=== PATIENT | male | born 1945 | race Caucasian/White ===

== ENCOUNTER 2020-12-14 18:43 | Emergency (ER) | payer MEDICARE, OTHER ==
[~2020-12-14] VITALS: Ht 167.6 cm; Wt 55.0 kg
[2020-12-14 18:46] VITALS: BP 138/58
[2020-12-14] MEDS ORDERED: LIDOCAINE HCL/EPINEPHRINE 1%-EPI 1:100,000 20 ML VIAL INFIL ONE (19:15)
[2020-12-14] MEDS ORDERED: KETOROLAC 15MG/ML VIAL IV ONE (19:15)
[2020-12-14] MEDS ORDERED: TETANUS, DIPHTHERIA, PERTUSSIS VAC/PF 0.5ML (>10YR OLD) IM ONE (19:15)
[2020-12-14] MEDS ORDERED: BACITRACIN ZINC OINT UDPKT TOP ONE ×2 (19:15→21:00)
[2020-12-14 19:40] LABS: EOSINOPHILS % 3.7 % (0.0-5.0); HEMATOCRIT. 34.9 % (42.0-52.0); HEMOGLOBIN. 12.2 g/dL (14.0-18.0); LYMPHOCYTES % 33.1 % (20.0-50.0); MEAN CORPUSCULAR VOLUME 91.8 fL (80.0-94.0); MEAN PLATELET VOLUME 7.6 fl (7.4-10.4); MONOCYTES % 8.8 % (2.0-8.0); NEUTROPHILS % 53.4 % (40.0-76.0); PLATELET 219 x1000/uL (130-400)
[2020-12-14] MEDS ORDERED: KETOROLAC 60MG/2ML VIAL IM ONE (19:45)
[2020-12-14 19:46] LABS: CHLORIDE 95 mEq/L (98-107)
[2020-12-14 19:49] LABS: ETHANOL BLOOD 250 mg/dL
[2020-12-14] MEDS ORDERED: IBUP-2028 MT (20:01)
== END 2020-12-14 21:43 | disposition home or self-care (01) ==
LOC: ER 18:43
DX: S51.011A Laceration without foreign body of right elbow, initial encounter (principal); F10.129 Alcohol abuse with intoxication, unspecified; E11.9 Type 2 diabetes mellitus without complications; I10 Essential (primary) hypertension; E78.00 Pure hypercholesterolemia, unspecified; Y90.8 Blood alcohol level of 240 mg/100 ml or more; W01.0XXA Fall on same level from slipping, tripping and stumbling without subsequent striking against object, initial encounter; Y93.89 Activity, other specified; Y92.488 Other paved roadways as the place of occurrence of the external cause
CPT/HCPCS: 12007; 36415; 70450; 73080; 80053; 80320; 85025; 90471; 90715; 96372; 99285; A4217; J1885; J3490; Z7610; G0480

== ENCOUNTER 2023-04-05 11:45 | Emergency (ER) | payer MEDICARE, MEDICAID, OTHER ==
[~2023-04-05] VITALS: Ht 162.6 cm; Wt 50.0 kg
[~2023-04-05 11:45] MED LIST: IBUP-2028 MT; LANTUSUD SUBCUT; LEVO750T68 MT
[2023-04-05 11:54] VITALS: O2SAT 99
[2023-04-05] MEDS: ACETAMINOPHEN 325MG TABLET PO STA (12:24)
[2023-04-05 12:59] LABS: BASOPHILS % 0.7 % (0.0-2.0); EOSINOPHILS % 3.6 % (0.0-5.0); HEMATOCRIT. 34.5 % (42.0-52.0); HEMOGLOBIN. 11.1 g/dL (14.0-18.0); LYMPHOCYTES % 26.8 % (20.0-50.0); MEAN CORPUSCULAR HEMOGLOBIN 28.3 pg (28.0-32.0); MEAN CORPUSCULAR HGB CONC 32.2 g/dL (31.0-37.0); MEAN CORPUSCULAR VOLUME 88.1 fL (80.0-94.0); MEAN PLATELET VOLUME 7.5 fl (7.4-10.4); MONOCYTES % 9.5 % (2.0-8.0); NEUTROPHILS % 59.4 % (40.0-76.0); PLATELET 316 x1000/uL (130-400); RED BLOOD CELL COUNT 3.92 mill/uL (4.7-6.1); RED CELL DISTRIBUTION WIDTH 14.6 % (11.6-14.6); WHITE BLOOD COUNT 6.3 x1000/uL (4.5-11.0)
[2023-04-05 13:13] LABS: ALANINE AMINOTRANSFERASE 10 IU/L (10-49); ALBUMIN 4.2 g/dL (3.2-4.8); ASPARTATE AMINOTRANSFERASE 14 IU/L (<34); BILIRUBIN TOTAL 0.3 mg/dL (0.1-1.0); CALCIUM 9.1 mg/dL (8.7-10.4); CARBON DIOXIDE 27 mEq/L (21-32); CHLORIDE 102 mEq/L (98-107); CREATININE 0.9 mg/dL (0.6-1.3); GLUCOSE 362 mg/dL (70-105); POTASSIUM 4.1 mEq/L (3.5-5.1); PROTEIN TOTAL 8.7 g/dL (6.0-8.3); SODIUM 133 mEq/L (136-145); UREA NITROGEN BLOOD 29 mg/dL (9-23)
[2023-04-05] MEDS: AMPICILLIN SOD/SULBACTAM NA 3 G in SODIUM CHLORIDE 0.9% 100 ML IV SCH (13:38)
[2023-04-05] MEDS ORDERED: IOHEXOL-300 100 ML BOTTLE ONE (15:01)
[2023-04-05] MEDS ORDERED: CIPHCO LEFT EAR (16:01)
[2023-04-05] MEDS ORDERED: CIPR500T5 MT (16:01)
[2023-04-05 16:58] VITALS: BP 134/78; PULSE 89; RESP 16; TEMP 98.7
== END 2023-04-05 16:59 | disposition home or self-care (01) ==
LOC: ER 11:45
DX: H60.8X2 Other otitis externa, left ear (principal); E11.9 Type 2 diabetes mellitus without complications; E78.00 Pure hypercholesterolemia, unspecified; I10 Essential (primary) hypertension; F15.90 Other stimulant use, unspecified, uncomplicated; Z98.890 Other specified postprocedural states
CPT/HCPCS: 99285; 96365; 70487; 80053; 85025; 36415; Q9967; J0295; J7050

== ENCOUNTER 2024-11-12 17:07 | Inpatient (IN) | payer MEDICARE, MEDICAID ==
[~2024-11-12] VITALS: Ht 165.1 cm; Wt 48.5 kg
[~2024-11-12 17:07] MED LIST changes: +CIPHCO LEFT EAR; +CIPR-494 MT
[2024-11-12 17:43] LABS: BASOPHILS % 0.9 % (0.0-2.0); EOSINOPHILS % 4.2 % (0.0-5.0); HEMATOCRIT. 39.4 % (42.0-52.0); HEMOGLOBIN. 13.1 g/dL (14.0-18.0); LYMPHOCYTES % 16.0 % (20.0-50.0); MEAN PLATELET VOLUME 7.2 fl (7.4-10.4); MONOCYTES % 6.8 % (2.0-8.0); NEUTROPHILS % 72.1 % (40.0-76.0); PLATELET 330 x1000/uL (130-400); RED BLOOD CELL COUNT 4.29 mill/uL (4.7-6.1); RED CELL DISTRIBUTION WIDTH 14.1 % (11.6-14.6)
[2024-11-12] MEDS: SODIUM CHLORIDE 0.9% 500 ML IV ONE (17:53)
[2024-11-12 17:55] LABS: INR 1.0
[2024-11-12 17:57] LABS: CREATININE 1.2 mg/dL (0.6-1.3)
[2024-11-12 17:58] LABS: ETHANOL BLOOD < 10 mg/dL (<10); TROPONIN I HIGH SENSITIVITY 7 ng/L (3.0-53); UREA NITROGEN BLOOD 17 mg/dL (9-23)
[2024-11-12 17:59] LABS: ASPARTATE AMINOTRANSFERASE 29 IU/L (<34); BILIRUBIN DIRECT 0.1 mg/dL (<=3.0)
[2024-11-12 18:00] LABS: BILIRUBIN TOTAL 0.4 mg/dL (0.1-1.0); PROTEIN TOTAL 9.2 g/dL (6.0-8.3)
[2024-11-12] MEDS: SODIUM CHLORIDE 0.9% 1,000 ML IV ONE (18:11)
[2024-11-12] MEDS: PIPERACILLIN/TAZO 3.375G/50ML 50 ML IV ONE (18:37)
[2024-11-12] MEDS: VANCOMYCIN 1G PREMIX 200 ML IV ONE (20:05)
[2024-11-12 20:52] LABS: CLARITY URINE CLEAR (CLEAR); COLOR URINE YELLOW (YELLOW); GLUCOSE URINE 3+ (NEGATIVE); KETONES URINE NEGATIVE (NEGATIVE); LEUKOCYTE ESTERASE URINE NEGATIVE (NEGATIVE); NITRITE URINE NEGATIVE (NEGATIVE); OCCULT BLOOD URINE NEGATIVE (NEGATIVE); PH URINE 6.5 (4.5-8.0); PROTEIN URINE NEGATIVE (NEGATIVE); SPECIFIC GRAVITY URINE 1.031 (1.005-1.030); UROBILINOGEN URINE 0.2 E.U./dL (0.2-1.0)
[2024-11-12 21:00] VITALS: BP 145/63; PULSE 90; RESP 17; TEMP 36.6; O2SAT 98
[2024-11-12] MEDS ORDERED: IOHEXOL-350 100 ML BOTTLE ONE (21:02)
[2024-11-12 21:04] LABS: BACTERIA URINE TRACE; RBC URINE NONE SEEN /hpf (0-2); SQUAMOUS EPITHELIAL CELL URINE RARE /lpf (RARE/1+); WBC URINE 0-2 /hpf (0-2)
[2024-11-12 21:05] LABS: *AMPHETAMINES SCREEN URINE NEGATIVE (NEGATIVE); *BARBITURATES SCREEN URINE NEGATIVE (NEGATIVE); *BENZODIAZEPINES SCREEN URINE NEGATIVE (NEGATIVE); *COCAINE SCREEN URINE NEGATIVE (NEGATIVE)
[2024-11-12 21:06] LABS: CANNABINOID URINE SCREEN NEGATIVE (NEGATIVE); ECSTASY MDMA SCREEN URINE NEGATIVE (NEGATIVE); METHADONE URINE SCREEN NEGATIVE (NEGATIVE); OPIATES URINE SCREEN NEGATIVE (NEGATIVE); PHENCYCLIDINE URINE SCREEN NEGATIVE (NEGATIVE)
[2024-11-12 22:07] LABS: INFLUENZA TYPE A Presumptive Negative (Pres. Neg.); INFLUENZA TYPE B Presumptive Negative (Pres. Neg.)
[2024-11-12 22:08] LABS: RESPIRATORY SYNCYTIAL VIRUS Not Detected (Not Detectd)
[2024-11-13] VITALS (7 sets, daily range): BP systolic 99–145; BP diastolic 47–69; PULSE 82–100; RESP 16–18; TEMP 36.2–37.8; O2SAT 96–100
[2024-11-13] MEDS ORDERED: CLONIDINE 0.1MG TABLET PO PRN
[2024-11-13] MEDS ORDERED: PROMETHAZINE/DEXTROMETHORPHAN 6.25-15MG/5ML PO PRN
[2024-11-13] MEDS ORDERED: ZOLPIDEM TARTRATE 5MG TABLET PO PRN
[2024-11-13] MEDS ORDERED: ONDANSETRON HCL 4MG/2ML INJ IV PRN
[2024-11-13] MEDS ORDERED: ACETAMINOPHEN 325MG TABLET PO PRN ×2
[2024-11-13] MEDS ORDERED: MAGNESIUM/ALUMINUM HYDROXIDE/SIMETHICONE 30ML UDC PO PRN
[2024-11-13] MEDS ORDERED: DIPHENHYDRAMINE 50MG/ML VIAL IV PRN
[2024-11-13] MEDS ORDERED: HYDROCODONE/ACETAMINOPHEN 5/325MG TABLET PO PRN (00:15)
[2024-11-13] MEDS ORDERED: LISI10TA26 PO (01:13)
[2024-11-13] MEDS ORDERED: ASPI-1406 PO (01:13)
[2024-11-13] MEDS ORDERED: CHOL400T PO (01:13)
[2024-11-13] MEDS ORDERED: ATOR10TA69 PO (01:13)
[2024-11-13] MEDS ORDERED: COLC0.6T66 (01:13)
[2024-11-13] MEDS ORDERED: SITA100T11 PO (01:13)
[2024-11-13] MEDS ORDERED: EMPA1TAB24 PO (01:13)
[2024-11-13] MEDS ORDERED: *PATIENT'S OWN MEDICATION STORAGE XX SCH (01:30)
[2024-11-13] MEDS ORDERED: DEXTROSE 50% WATER 50ML SYRINGE IV PRN (02:00)
[2024-11-13] MEDS: AZITHROMYCIN 500MG/250ML 250 ML IV SCH (03:17)
[2024-11-13] MEDS: CEFTRIAXONE 1GM/50ML 50 ML IV SCH (06:18)
[2024-11-13] MEDS: BLOOD SUGAR DIAGNOSTIC STRIP TEST SCH (06:19)
[2024-11-13] MEDS: SODIUM CHLORIDE 0.9% 3ML FLUSH IVF SCH (06:19)
[2024-11-13] MEDS: GUAIFENESIN 600MG ER TABLET PO SCH (10:23)
[2024-11-13] MEDS: INSULIN LISPRO 100 UNITS/ML SUBCUT SCH (10:51)
[2024-11-14] VITALS: BP 107/52; PULSE 83; RESP 18; TEMP 36.7; O2SAT 96
[2024-11-14 04:00] VITALS: BP 117/57; PULSE 76; RESP 17; TEMP 36.5; O2SAT 99
[2024-11-14 08:00] VITALS: BP 123/62; PULSE 72; RESP 16; TEMP 36.7; O2SAT 99
[2024-11-14 12:00] VITALS: BP 115/56; PULSE 80; RESP 16; TEMP 36.4; O2SAT 99
[2024-11-14 16:00] VITALS: BP 122/58; PULSE 68; RESP 17; TEMP 36.3; O2SAT 97
[2024-11-14 20:00] VITALS: BP 122/61; PULSE 89; RESP 19; TEMP 36.8; O2SAT 97
[2024-11-15] VITALS (7 sets, daily range): BP systolic 110–134; BP diastolic 59–84; PULSE 73–89; RESP 17–20; TEMP 36.5–37.2; O2SAT 97–99
[2024-11-15 06:12] LABS: BASOPHILS % 0.4 % (0.0-2.0); EOSINOPHILS % 7.6 % (0.0-5.0); HEMATOCRIT. 36.2 % (42.0-52.0); HEMOGLOBIN. 12.0 g/dL (14.0-18.0); LYMPHOCYTES % 19.2 % (20.0-50.0); MEAN PLATELET VOLUME 7.7 fl (7.4-10.4); MONOCYTES % 9.5 % (2.0-8.0); NEUTROPHILS % 63.3 % (40.0-76.0); PLATELET 281 x1000/uL (130-400); RED BLOOD CELL COUNT 3.95 mill/uL (4.7-6.1); RED CELL DISTRIBUTION WIDTH 13.9 % (11.6-14.6)
[2024-11-15 06:25] LABS: CREATININE 1.0 mg/dL (0.6-1.3); UREA NITROGEN BLOOD 17 mg/dL (9-23)
[2024-11-15] MEDS: IPRATROPIUM/ALBUTEROL 0.5-3(2.5)MG/3ML NEB HHN PRN (21:57)
[2024-11-16] VITALS: BP 125/65; PULSE 86; RESP 17; TEMP 37.2; O2SAT 96
[2024-11-16 04:00] VITALS: BP 124/60; PULSE 81; RESP 17; TEMP 36.8; O2SAT 98
[2024-11-16] MEDS ORDERED: AZITHROMYCIN 500 MG TABLET PO SCH (06:00)
[2024-11-16 08:00] VITALS: BP 106/60; PULSE 87; RESP 18; TEMP 36.6; O2SAT 97
[2024-11-16 12:00] VITALS: BP_SYST 122; BP_SYST 140; BP_DIAS 64; BP_DIAS 73; PULSE 84; RESP 18; TEMP 36.7; O2SAT 95
[2024-11-16 16:00] VITALS: BP 119/64; PULSE 82; RESP 18; TEMP 36.7; O2SAT 99
[2024-11-16 20:00] VITALS: BP 147/70; PULSE 100; RESP 17; TEMP 37; O2SAT 100
[2024-11-16] MEDS: INSULIN GLARGINE 100 UNITS/ML SUBCUT SCH (21:53)
[2024-11-17] VITALS (7 sets, daily range): BP systolic 90–147; BP diastolic 57–72; PULSE 46–96; RESP 16–18; TEMP 36.1–37; O2SAT 66–100
[2024-11-18] VITALS: BP 132/76; PULSE 69; RESP 18; TEMP 36.4; O2SAT 99
[2024-11-18 08:00] VITALS: BP 120/58; PULSE 87; RESP 18; TEMP 36.6; O2SAT 97
[2024-11-18 12:00] VITALS: BP 143/63; PULSE 86; RESP 16; TEMP 36.1; O2SAT 96
[2024-11-18] MEDS ORDERED: LEVO-65 MT (13:24)
[2024-11-18 16:00] VITALS: BP 155/77; PULSE 92; RESP 16; TEMP 35.9; O2SAT 98
[2024-11-18 16:14] VITALS: BP 155/77; PULSE 92; RESP 16; TEMP 96.6
== END 2024-11-18 16:43 | disposition home or self-care (01) | DRG 177 ==
LOC: ER 17:16 → EDBEDREQ 19:08 → EDBEDREQTM 19:08 → ENRESERV 20:26 → 5WST 21:10
PROVIDERS: ADMIT Internal Medicine; ATTEND Internal Medicine
DX: J15.0 Pneumonia due to Klebsiella pneumoniae (principal); J96.00 Acute respiratory failure, unspecified whether with hypoxia or hypercapnia; R04.2 Hemoptysis; I10 Essential (primary) hypertension; E11.9 Type 2 diabetes mellitus without complications; E78.00 Pure hypercholesterolemia, unspecified; R91.1 Solitary pulmonary nodule; I25.10 Atherosclerotic heart disease of native coronary artery without angina pectoris; Z20.822 Contact with and (suspected) exposure to COVID-19; Z51.5 Encounter for palliative care; Z87.891 Personal history of nicotine dependence; Z95.1 Presence of aortocoronary bypass graft; Z79.899 Other long term (current) drug therapy; Z83.3 Family history of diabetes mellitus; Z82.49 Family history of ischemic heart disease and other diseases of the circulatory system
CPT/HCPCS: 36415; 71045; 71275; 73660; 80048; 80076; 80305; 80320; 81003; 82962; 83036; 83605; 83735; 83880; 84145; 84484; 85025; 86480; 87070; 87077; 87116; 87186; 87420; 87426; 87804; 93005; 94640; 94664; 96361; 96365; 99291; J0456; J0696; J1815; J2543; J3373; J7030; J7040; Q9967; G0480